=== PATIENT | male | born 1950 | race Caucasian/White ===

== ENCOUNTER 2020-08-20 21:35 | Emergency (ER) | payer MEDICARE, OTHER ==
--- NOTE | 2020-08-20 22:23 | EDM.PDOC ---
ED HPI GENERAL MEDICAL PROBLEM - General Chief Complaint: Genitourinary Problem Stated Complaint: POSSIBLE UTI Time Seen by Provider: 08/20/20 21:45 Source of Information: Reports: Patient History Limitations: Reports: No Limitations - History of Present Illness INITIAL COMMENTS - FREE TEXT/NARRATIVE: patient presented to the ER with a c/o lower abdominal pain for 3 days, assoc iated with dysuria and frequencies. h/o BPH. no fever or chills. no n/v or change in bowel habits. no CP or SOB. patient denies any PMHx. Doesn't take any medications for any reason. Lower Abdomen Pain Score (Numeric/FACES): 5 - Related Data Allergies Allergy/AdvReac Type Severity Reaction Status Date / Time No Known Allergies Allergy Verified 08/20/20 21:46 Home Meds: Home Meds Tamsulosin HCl [Flomax] 0.4 mg PO DAILY #30 cap.er.24h 08/20/20 [Rx] Past Medical History - Past Health History Medical/Surgical History: Denies Medical/Surgical History Social & Family History - Family History Family Medical History: No Pertinent Family History - Tobacco Use Tobacco Use Status *Q: Never Tobacco User Second Hand Smoke Exposure: No - Caffeine Use Caffeine Use: Reports: Coffee - Alcohol Use Days Per Week of Alcohol Use: 3 Number of Drinks Per Day: 2 Total Drinks Per Week: 6 - Recreational Drug Use Recreational Drug Use: No ED ROS GENERAL - Review of Systems Review Of Systems: See Below Constitutional: Reports: No Symptoms HEENT: Reports: No Symptoms Respiratory: Reports: No Symptoms Cardiovascular: Reports: No Symptoms GI/Abdominal: Reports: Abdominal Pain (lower abdominal pain) : Reports: Dysuria, Frequency. Denies: Hematuria Musculoskeletal: Reports: No Symptoms Skin: Reports: No Symptoms Neurological: Reports: No Symptoms Psychiatric: Reports: No Symptoms ED EXAM, GI/ABD - Physical Exam Exam: See Below Exam Limited By: No Limitations General Appearance: Alert, WD/WN, No Apparent Distress Eyes: Bilateral: EOMI Respiratory/Chest: No Respiratory Distress, Lungs Clear Cardiovascular: Regular Rate, Rhythm GI/Abdominal Exam: Normal Bowel Sounds, Soft (Male) Exam: Other (mild supra-pucib tenderness ) Extremities: Normal Inspection Neurological: Alert, Oriented, No Motor/Sensory Deficits Psychiatric: Normal Affect Course - Vital Signs Last Recorded V/S: Last Vital Signs Temp 36.3 C 08/20/20 21:35 Pulse 74 08/20/20 23:01 Resp 16 08/20/20 21:35 BP 126/77 08/20/20 23:01 Pulse Ox 96 08/20/20 21:35 - Orders/Labs/Meds Labs: Laboratory Tests 08/20/20 08/20/20 08/20/20 Range/Units 21:40 22:10 22:10 WBC 8.4 (4.0-11.0) K/uL RBC 4.54 (4.50-6.50) M/uL Hgb 13.8 (13.0-18.0) g/dL Hct 41.2 (40.0-54.0) % MCV 91 (76-96) fL MCH 30.4 (27.0-32.0) pg MCHC 33.5 (31.0-35.0) g/dL RDW 14.1 (11.0-16.0) % Plt Count 227 (150-400) K/uL MPV 10.3 H (6.0-10.0) fL Neut % (Auto) 50.6 (45.0-70.0) % Lymph % (Auto) 36.2 (20.0-40.0) % [place] % (Auto) 9.8 (3.0-10.0) % Eos % (Auto) 3.0 (1.0-5.0) % Baso % (Auto) 0.4 (0.0-0.5) % Neut # (Auto) 4.25 (2.00-7.50) K/uL Lymph # (Auto) 3.03 (1.50-4.00) K/uL [place] # (Auto) 0.82 H (0.20-0.80) K/uL Eos # (Auto) 0.25 (0.04-0.40) K/uL Baso # (Auto) 0.03 (0.02-0.10) K/uL Sodium 140 (136-145) mmol/L Potassium 4.2 (3.5-5.1) mmol/L Chloride 104 (98-107) mmol/L Carbon Dioxide 24.4 (21.0-32.0) mmol/L Anion Gap 15.8 H (5.0-15.0) mmol/L BUN 19 (8-26) mg/dL Creatinine 1.27 (0.70-1.30) mg/dL Est Cr Clr Drug Dosing 61.10 mL/min Estimated GFR (MDRD) 56 L (>60) MLS/MIN BUN/Creatinine Ratio 15.0 (6-25) Glucose 113 H (74-100) mg/dL Calcium 8.2 L (8.5-10.1) mg/dL Urine Color Yellow Urine Appearance Clear (CLEAR) Urine pH 5.5 (5.0-8.0) Ur Specific [place] 1.015 (1.003-1.030) Urine Protein Negative (NEGATIVE) mg/dL Urine Glucose (UA) Negative (NEGATIVE) mg/dL Urine Ketones Negative (NEGATIVE) mg/dL Urine Occult Blood Negative (NEGATIVE) Urine Nitrite Negative (NEGATIVE) Urine Bilirubin Negative (NEGATIVE) Urine Urobilinogen 0.2 (0.2-1.0) E.U./dL Ur Leukocyte Esterase Negative (NEGATIVE) Meds: Medications Discontinued Medications Generic Name Dose Route Start Last Admin Trade Name Franckq PRN Reason Stop Dose Admin Tamsulosin HCl 0.4 mg 08/20/20 22:41 08/20/20 22:58 Tamsulosin 0.4 Mg Cap.Er PO 08/20/20 22:42 0.4 mg ONETIME ONE Administration - Re-Assessments/Exams Free Text/Narrative Re-Assessment/Exam: UA WNL - no e/o infection bladder scan showed +800 ml patient wasn't able to void a catheter was placed - drained a large amount of urine with immediate comfort flomax was given and prescribed Departure - Departure Time of Disposition: 23:11 Disposition: Home, Self-Care 01 Condition: Good Clinical Impression: Retention of urine BPH (benign prostatic hyperplasia) Qualifiers: Lower urinary tract symptom presence: symptoms present Lower urinary tract symptom detail: urinary retention Qualified Code(s): N40.1 - Benign prostatic hyperplasia with lower urinary tract symptoms; R33.8 - Other retention of urine - Discharge Information *PRESCRIPTION DRUG MONITORING PROGRAM REVIEWED*: Not Applicable *COPY OF PRESCRIPTION DRUG MONITORING REPORT IN PATIENT SHEILA: Not Applicable Prescriptions: Tamsulosin HCl [Flomax] 0.4 mg PO DAILY #30 cap.er.24h Instructions: Benign Prostatic Hyperplasia, Acute Urinary Retention, Male, [id number] Referrals: PCP,None [Primary Care Provider] - Forms: ED Department Discharge Additional Instructions: - take flomax as prescribed - recommend to make an appointment at the clinic and discuss you prostatic enlargement situation - return to the ER if any concerns or recurrence of symptoms Sepsis Event Note (ED) - Evaluation Sepsis Screening Result: No Definite Risk - Focused Exam Vital Signs: Vital Signs Temp Pulse Resp BP Pulse Ox 08/20/20 23:01 74 126/77 08/20/20 22:04 78 138/95 H 08/20/20 21:58 73 145/93 H 08/20/20 21:35 36.3 C 80 16 152/97 H 96 08/20/20 21:31 80 142/92 H - Problem List & Annotations (1) BPH (benign prostatic hyperplasia) SNOMED Code(s): 550373938 Code(s): N40.0 - BENIGN PROSTATIC HYPERPLASIA WITHOUT LOWER URINRY TRACT SYMP Status: Acute Current Visit: Yes Qualifiers: Lower urinary tract symptom presence: symptoms present Lower urinary tract symptom detail: urinary retention Qualified Code(s): N40.1 - Benign prostatic hyperplasia with lower urinary tract symptoms; R33.8 - Other retention of urine (2) Retention of urine SNOMED Code(s): 641915122 Code(s): R33.9 - RETENTION OF URINE, UNSPECIFIED Status: Acute Current Visit: Yes - Problem List Review Problem List Initiated/Reviewed/Updated: Yes - Assessment/Plan Plan: - take flomax as prescribed - recommend to make an appointment at the clinic and discuss you prostatic enlargement situation - return to the ER if any concerns or recurrence of symptoms
[2020-08-20] MEDS ORDERED: Tamsulosin 0.4 MG Cap.ER PO ONE (22:41)
== END 2020-08-20 23:25 | disposition home or self-care (01) ==
LOC: LB.ED 21:35
DX: N40.1 Benign prostatic hyperplasia with lower urinary tract symptoms (principal); R33.8 Other retention of urine
CPT/HCPCS: 36415; 51701; 51798; 80048; 81003; 85025; 99284-25; A9270-GY